=== PATIENT | male | born 1985 | race Two or more races ===

== ENCOUNTER 2021-04-20 14:08 | Emergency (ER) | payer SELFPAY ==
[~2021-04-20] VITALS: Ht 177.8 cm; Wt 111.1 kg
[2021-04-20 16:55] VITALS: BP 144/84
== END 2021-04-20 17:52 | disposition home or self-care (01) ==
LOC: ER 14:08
DX: S60.410A Abrasion of right index finger, initial encounter (principal); F17.210 Nicotine dependence, cigarettes, uncomplicated; W26.0XXA Contact with knife, initial encounter; Y93.89 Activity, other specified; Y92.89 Other specified places as the place of occurrence of the external cause; Y99.8 Other external cause status